=== PATIENT | male | born 2000 | race African-American/Black ===

== ENCOUNTER 2023-06-08 16:37 | Emergency (ER) | payer MEDICAID ==
[~2023-06-08] VITALS: Ht 170.2 cm; Wt 90.9 kg
[2023-06-08 16:41] VITALS: TEMP 98.7
[2023-06-08] MEDS: LIDOCAINE 1% 10 ML VIAL SQ ONE (18:26)
[2023-06-08] MEDS ORDERED: CEPH-558 PO (19:11)
[2023-06-08] MEDS ORDERED: BACITRACIN 0.9 GM PACKET OINTMENT TP ONE (19:15)
[2023-06-08] MEDS: BACITRACIN 0.9 GM PACKET OINTMENT TP ONE (19:26)
[2023-06-08 19:28] VITALS: BP 133/88; PULSE 80; RESP 18
== END 2023-06-08 19:28 | disposition home or self-care (01) ==
LOC: EMS 16:37
DX: J45.909 Unspecified asthma, uncomplicated (principal); Z48.02 Encounter for removal of sutures
CPT/HCPCS: 99283; J3490